=== PATIENT | female | born 1950 | race Caucasian/White ===

== ENCOUNTER 2020-05-03 18:30 | Inpatient (IN) | payer OTHER ==
[~2020-05-03] VITALS: Ht 175.3 cm; Wt 71.2 kg
--- NOTE | 2020-05-03 18:35 | NUR ---
PT BIBRA FROM HOME TO ER BED 08. PER REPORT, PT HAD A COLONOSCOPY THIS MORNING, STATES FELT WEAK AND HAD A SYNCOPAL EPISODE. ALSO C/O FACIAL PAIN. PER EMS PT WAS HYPOTENSIVE AT THE FIELD. APPROX 500ML NS GIVEN TREE AND SHRUB TECHNICIAN. PT IS AAOX4. GOWNED AND PLACED ON MONITOR. B/P SLIGHTLY IMPROVED. AWAITING MD MORA.
--- NOTE | 2020-05-03 18:39 | NUR ---
DR PISANO AT BEDSIDE FOR EVAL
[2020-05-03] MEDS ORDERED: IV NS 0.9% 1,000 ML BAG IV ONE (19:00)
[2020-05-03 19:13] LABS: BASOPHILS % (AUTO) 0.4 % (0.0-2.0); EOSINOPHILS % (AUTO) 0.4 % (0.0-6.0); HEMATOCRIT 34 % (33-45); HEMOGLOBIN 11.6 g/dL (11.5-14.8); LYMPHOCYTES # (AUTO) 1.6 /CMM (0.8-4.8); LYMPHOCYTES % (AUTO) 14.7 % (20.0-44.0); MEAN CORPUSCULAR HGB CONC 34 g/dl (31.0-36.0); MEAN CORPUSCULAR VOLUME 99 fL (82-100); MONOCYTES # (AUTO) 0.5 /CMM (0.1-1.30); MONOCYTES % (AUTO) 4.5 % (2.0-12.0); NEUTROPHILS # (AUTO) 8.5 /CMM (1.8-8.9); PLATELET COUNT (AUTO) 195 /CMM (150-450); RED BLOOD CELL COUNT(AUTO) 3.45 MIL/uL (4.0-5.2); WHITE BLOOD COUNT (AUTO) 10.6 K/uL (4.3-11.0)
--- NOTE | 2020-05-03 19:23 | NUR ---
PT BROUGHT TO CT
[2020-05-03 19:38] LABS: CALCIUM, SERUM 8.4 mg/dL (8.5-10.1); CARBON DIOXIDE 25 mmol/L (21-32); CHLORIDE 104 mmol/L (98-107); CREATININE 0.8 mg/dL (0.6-1.3); GLUCOSE 139 mg/dL (74-106); POTASSIUM 3.7 mmol/L (3.5-5.1); SODIUM SERUM 139 mmol/L (136-145); UREA NITROGEN, BLOOD 19 mg/dL (7-18)
[2020-05-03 19:42] LABS: ALANINE AMINOTRANSFERASE 50 U/L (12-78); ALBUMIN 3.3 g/dL (3.4-5.0); ALKALINE PHOSPHATASE 78 U/L (46-116); ASPARTATE AMINOTRANSFERASE 36 U/L (15-37); BILIRUBIN,DIRECT 0.1 mg/dL (0.0-0.2); BILIRUBIN,TOTAL 0.5 mg/dL (0.2-1.0); TOTAL PROTEIN, SERUM 5.7 g/dL (6.4-8.2)
--- NOTE | 2020-05-03 19:48 | NUR ---
SPOKE TO PT. PT AAOX4. STATED SHE IS "FREEZING." PT PROVIDED WITH 5 BLANEKTS. VSS. PT AWARE SHE WILL BE ADMITED FOR OBSERVATION.
--- NOTE | 2020-05-03 20:38 | NUR ---
SPOKE TO PT'S BROTHER. PROVIDED WITH PT'S BELONINGS. AWARE SHE WILL BE ADMITTED FOR SYNCOPE.
--- NOTE | 2020-05-03 20:58 | NUR ---
ORTHOSTATIC PLACED. PT PROVIDED WITH MORE BLANKETS.
--- NOTE | 2020-05-03 21:01 | NUR ---
PT STATED SHE DOES NOT TAKE ANY MEDICATIONS.
--- NOTE | 2020-05-03 21:25 | NUR ---
REPORT GIVEN TO SHRUTI ARCHIBALD FOR [facility]
--- NOTE | 2020-05-03 21:37 | NUR ---
PAGED CARE DIRECTOR GI DOCTOR
[2020-05-03 22:00] VITALS: BP_SYST 106; BP_SYST 118; BP_SYST 99; BP_DIAS 51; BP_DIAS 60; BP_DIAS 64
[2020-05-03] MEDS ORDERED: Z GUARD REMEDY 2 OZ OINT TP PRN (22:00)
[2020-05-03] MEDS ORDERED: ONDANSETRON HCL/PF 4 MG/2 ML VIAL IVP PRN (22:00)
[2020-05-03] MEDS ORDERED: MAGNESIUM HYDROXIDE 30 ML UDC PO PRN (22:00)
[2020-05-03] MEDS ORDERED: MAG HYDROX/AL HYDROX/SIMETH 30 ML UDC PO PRN (22:00)
[2020-05-03] MEDS ORDERED: ACETAMINOPHEN 325 MG TABLET PO PRN (22:00)
--- NOTE | 2020-05-03 22:00 | NUR ---
WET MILLING WHEEL OPERATOR OPENING/ADMITTING NOTE: Received patient from ER via gurney. Safely transfered to bed. Patient admitted for syncope/GI bleed. Patient is in room air. Respiration is even and unlabored. She is alert and oriented x4. On tele monitoring. She is SR 66. Upon assenssment, no perirectal bleeding is noted. Patient has a laceration on the right eyebrow, bruising bellow eyes bilaterally, swelling to nose, left leg bruising, right wrist bruising. Patient complains of pain on right wrist. Asked if she wanted pain medication. Patient refused. On clear liquid diet. IV 18 gauge on right AC. NS is running as ordered. Orthostatic BP conducted and documented. Discussed plan of care with patient. Seen by doctor Iveth. Dr. Lenny alonzo stated that echo and cardiac consult. She also mentions that right wrist does not need imaging at this time. Oriented patient to staff and call light. Safety precautions implemented. Bed in lowest position, brakes are on, call light is within reach, side rails are up, bed alarm is on. Will continue to monitor.
--- NOTE | 2020-05-03 22:02 | NUR ---
PT TRANSFERED PER ACLS PROTOCOL
[2020-05-03] MEDS: IV NS 0.9% 1,000 ML IV PRN (22:39)
[2020-05-03 23:30] VITALS: BP 118/64
[2020-05-04] VITALS (8 sets, daily range): BP systolic 52–130; BP diastolic 52–88
[2020-05-04 00:12] LABS: HEMOGLOBIN 10.8 g/dL (11.5-14.8)
--- NOTE | 2020-05-04 06:17 | NUR ---
LABOR DELIVERY SPECIALIST CLOSING NOTE: Respiration is even and unlabored. She is alert and oriented x4. On tele monitoring. She is SR 67. No perirectal bleeding is noted. Patient has a laceration on the right eyebrow, bruising bellow eyes bilaterally, swelling to nose, left leg bruising, right wrist bruising. On clear liquid diet. IV 18 gauge on right AC. NS is running as ordered. Orthostatic BP conducted and documented. Respiration is even and unlabored. Oriented patient to staff and call light. Safety precautions implemented. Bed in lowest position, brakes are on, call light is within reach, side rails are up, bed alarm is on. Will continue to monitor and endorse to next shift.
[2020-05-04 06:27] LABS: BASOPHILS % (AUTO) 0.3 % (0.0-2.0); EOSINOPHILS % (AUTO) 0.4 % (0.0-6.0); HEMATOCRIT 28 % (33-45); HEMOGLOBIN 9.5 g/dL (11.5-14.8); LYMPHOCYTES # (AUTO) 1.2 /CMM (0.8-4.8); MEAN CORPUSCULAR HGB CONC 34 g/dl (31.0-36.0); MEAN CORPUSCULAR VOLUME 98 fL (82-100); MONOCYTES # (AUTO) 0.5 /CMM (0.1-1.30); MONOCYTES % (AUTO) 6.5 % (2.0-12.0); NEUTROPHILS # (AUTO) 5.5 /CMM (1.8-8.9); NEUTROPHILS % (AUTO) 75.8 % (43.0-81.0); PLATELET COUNT (AUTO) 139 /CMM (150-450); RED BLOOD CELL COUNT(AUTO) 2.85 MIL/uL (4.0-5.2); WHITE BLOOD COUNT (AUTO) 7.3 K/uL (4.3-11.0)
[2020-05-04 06:40] LABS: CREATININE 0.5 mg/dL (0.6-1.3); PHOSPHORUS 3.4 mg/dL (2.5-4.9); POTASSIUM 3.2 mmol/L (3.5-5.1)
[2020-05-04 06:46] LABS: THYROID STIMULATING HORMONE 0.967 uIU/mL (0.358-3.74)
[2020-05-04] MEDS: IV NS 0.9% 1,000 ML IV PRN ×3 (07:00→18:39)
--- NOTE | 2020-05-04 07:08 | NUR ---
DIABETES TERRITORY MANAGER OPENING NOTES RECEIVED PT IN BED AWAKE AT THIS TIME. AOX4. PT ABLE TO MAKE NEEDS KNOWN. NO SOB NOTED, NO S/S OF ANY ACUTE DISTRESS NOTED. NO C/O PAIN AT THIS TIME. PT ON EXTERNAL TEL MONITOR READING SR 67. RESPIRATIONS EVEN AND UNLABORED. IV ACCESS IN RAC G#18 INTACT AND PATENT. SAFETY PRECAUTIONS IN PLACE, BED IN LOWEST LOCKED POSITION, BED ALARM ON, HOB ELEVATED TO SEMI FOWLERS POSITION, SIDE RAILS UP, CALL LIGHT WITHIN REACH. WILL CONTINUE TO MONITOR
--- NOTE | 2020-05-04 08:08 | NUR ---
WOUND CARE CONSULT: PT PRESENTS WITH DRY SCRATCH ABOVE RT EYE WITH BRUISING AROUND BOTH EYES AND SOME REDNESS TO NOSE, PRESENT ON ADMISSION. PT IS INDEPENDENT WITH BED MOBILITY AND CONTINENT. WILL SEE PRN. CURRENT AQUILES SCORE IS 21. Addendum: 05/04/20 at 0809 by EVE JUAREZ WNDNU Amended: Links added.
[2020-05-04] MEDS: PANTOPRAZOLE 40 MG VIAL IV SCH ×2 (08:19→21:48)
[2020-05-04] MEDS: POTASSIUM CHLORIDE 20 MEQ TAB.PRT.SR PO SCH ×3 (08:19→10:22)
[2020-05-04 09:00] LABS: IRON, SERUM 72 ug/dl (50-175); TOTAL IRON BINDING CAPACITY 225 ug/dl (250-450)
[2020-05-04 09:32] LABS: FERRITIN 46 ng/mL (8-388)
[2020-05-04 18:37] LABS: APPEARANCE,URINE SL CLOUDY (CLEAR); BILIRUBIN,URINE NEGATIVE (NEGATIVE); BLOOD, URINE TRACE-INTA Ery/uL (NEGATIVE); COLOR,URINE YELLOW (YELLOW); KETONES,URINE 15 (NEGATIVE); LEUKOCYTE ESTERASE ,URINE NEGATIVE (NEGATIVE); NITRITE, URINE NEGATIVE (NEGATIVE); PROTEIN,URINE NEGATIVE (NEGATIVE); UGLUCOSE NEGATIVE (NEGATIVE); UROBILINOGEN,URINE 0.2 EU/dL (0.2)
--- NOTE | 2020-05-04 18:57 | NUR ---
TANGLED YARN WORKER CLOSING NOTES PT IN BED AWAKE AT THIS TIME. PT REMAINED STABLE THROUGHOUT SHIFT. NO S/S OF ANY ACUTE DISTRESS NOTED. NO C/O PAIN AT THIS TIME. PT KEPT CLEAN AND DRY. ALL CARE,NEEDS, TREATMENT AND MEDICATIONS ADMINISTERED ANTICIPATED PER ORDER. SAFETY PRECAUTIONS IN PLACE, BED IN LOWEST LOCKED POSITION, BED ALARM ON, HOB ELEVATED TO SEMI FOWLERS POSITION, SIDE RAILS UP, CALL LIGHT WITHIN REACH. WILL ENDORSE TO DESIGN ENGINEER AGRICULTURAL EQUIPMENT NURSE FOR [facility].
--- NOTE | 2020-05-04 19:00 | NUR ---
OPTIMIZATION SPECIALIST NOTES RECEIVED PT IN BED AWAKE AND ABLE TO MAKE NEEDS KNOWN. PT A/O X3. RESPIRATIONS EVEN AND UNLABORED WITH NO S/S OF ACUTE DISTRESS OR SOB NOTED. NO COMPLAINTS OF PAIN AT THIS TIME. PT NOTED WITH SWELLING ON RIGHT AC AND RIGHT HAND/WRIST. SAFETY MEASURES IN PLACE WITH BED IN LOWEST LOCKED POSITION WITH SIDE RAILS UP X2. CALL LIGHT WITHIN REACH. WILL CONTINUE TO MONITOR.
--- NOTE | 2020-05-04 19:05 | NUR ---
EQUIPMENT OPERATION INSTRUCTOR NOTES PT NOTED WITH SWELLING IN RIGHT HAND AND AC. IV STOPPED. MADE AWARE.
[2020-05-04 19:08] LABS: WBC,URINE 0-2 /HPF (0-3)
[2020-05-04 19:09] LABS: BACTERIA,URINE Few /HPF (None Seen); CALCIUM OXALATE CRYSTALS,UR Rare /HPF (None Seen); SQUAMOUS EPITHELIAL CELL,UR Moderate /HPF (None Seen)
--- NOTE | 2020-05-04 19:15 | NUR ---
GLOBAL PROGRAM MANAGER NOTES MD WITH NEW ORDER FOR XRAY RIGHT WRIST, STAT. WILL CONTINUE TO MONITOR.
[2020-05-04 20:03] LABS: BASOPHILS % (AUTO) 0.5 % (0.0-2.0); EOSINOPHILS % (AUTO) 0.7 % (0.0-6.0); HEMATOCRIT 27 % (33-45); HEMOGLOBIN 9.2 g/dL (11.5-14.8); LYMPHOCYTES # (AUTO) 1.4 /CMM (0.8-4.8); LYMPHOCYTES % (AUTO) 23.7 % (20.0-44.0); MEAN CORPUSCULAR HGB CONC 34 g/dl (31.0-36.0); MEAN CORPUSCULAR VOLUME 99 fL (82-100); MONOCYTES # (AUTO) 0.4 /CMM (0.1-1.30); MONOCYTES % (AUTO) 6.8 % (2.0-12.0); NEUTROPHILS # (AUTO) 4.1 /CMM (1.8-8.9); NEUTROPHILS % (AUTO) 68.3 % (43.0-81.0); PLATELET COUNT (AUTO) 135 /CMM (150-450); RED BLOOD CELL COUNT(AUTO) 2.75 MIL/uL (4.0-5.2)
--- NOTE | 2020-05-04 20:30 | NUR ---
EXTENSION COURSE COORDINATOR NOTES RESULTS FROM XRAY OF RIGHT WRIST BACK, NOTED WITH FRACTURE. MD MADE AWARE, NEW ORDER TO CALL FOR ORTHO CONSULT IN AM. WILL CONTINUE TO MONITOR.
[2020-05-05 00:53] VITALS: BP 142/75
[2020-05-05 04:05] VITALS: BP 125/75
[2020-05-05] MEDS: IV NS 0.9% 1,000 ML IV PRN (04:29)
[2020-05-05 04:35] VITALS: BP 136/86
[2020-05-05 04:36] VITALS: BP_SYST 129; BP_SYST 133; BP_DIAS 73; BP_DIAS 74
[2020-05-05 04:49] VITALS: BP_SYST 129; BP_SYST 133; BP_SYST 136; BP_DIAS 73; BP_DIAS 74; BP_DIAS 80
[2020-05-05 06:14] LABS: BASOPHILS % (AUTO) 0.5 % (0.0-2.0); EOSINOPHILS % (AUTO) 1.4 % (0.0-6.0); HEMATOCRIT 26 % (33-45); HEMOGLOBIN 8.9 g/dL (11.5-14.8); LYMPHOCYTES # (AUTO) 1.4 /CMM (0.8-4.8); LYMPHOCYTES % (AUTO) 23.5 % (20.0-44.0); MEAN CORPUSCULAR HGB CONC 35 g/dl (31.0-36.0); MEAN CORPUSCULAR VOLUME 97 fL (82-100); MONOCYTES # (AUTO) 0.4 /CMM (0.1-1.30); MONOCYTES % (AUTO) 6.3 % (2.0-12.0); NEUTROPHILS % (AUTO) 68.3 % (43.0-81.0); PLATELET COUNT (AUTO) 126 /CMM (150-450); RED BLOOD CELL COUNT(AUTO) 2.67 MIL/uL (4.0-5.2); WHITE BLOOD COUNT (AUTO) 5.8 K/uL (4.3-11.0)
[2020-05-05 06:51] LABS: ALBUMIN 2.9 g/dL (3.4-5.0); BILIRUBIN,TOTAL 0.7 mg/dL (0.2-1.0); CALCIUM, SERUM 8.1 mg/dL (8.5-10.1); CREATININE 0.5 mg/dL (0.6-1.3); MAGNESIUM 1.7 mg/dL (1.8-2.4); PHOSPHORUS 2.9 mg/dL (2.5-4.9); POTASSIUM 3.5 mmol/L (3.5-5.1); TOTAL PROTEIN, SERUM 5.3 g/dL (6.4-8.2)
--- NOTE | 2020-05-05 07:05 | NUR ---
COMB SETTER OPENING NOTES RECEIVED PT IN BED AWAKE AT THIS TIME. AOX4. PT ABLE TO VERBALIZE NEEDS. NO SOB NOTED, NO S/S OF ANY ACUTE DISTRESS NOTED. NO C/O PAIN AT THIS TIME. PT ON EXTERNAL TEL MONITOR READING SR IN THE 70S. RESPIRATIONS EVEN AND UNLABORED. IV ACCESS IN LEFT HAND G#22, INTACT, PATENT, FLUSHING WELL AND INFUSING WITH 0.9NS@125ML/HR. SAFETY PRECAUTIONS IN PLACE, BED IN LOWEST LOCKED POSITION, BED ALARM ON, HOB ELEVATED TO SEMI FOWLERS POSITION, SIDE RAILS UP, CALL LIGHT WITHIN REACH. WILL CONTINUE TO MONITOR
--- NOTE | 2020-05-05 07:37 | NUR ---
PARTY PLANNER NOTES PT IN BED AWAKE AND ABLE TO MAKE NEEDS KNOWN. PT A/O X3. RESPIRATIONS EVEN AND UNLABORED WITH NO S/S OF ACUTE DISTRESS OR SOB NOTED THROUGHOUT SHIFT. NO COMPLAINTS OF PAIN AT THIS TIME. PT NOTED WITH SWELLING ON RIGHT AC AND RIGHT HAND/WRIST. SAFETY MEASURES IN PLACE WITH BED IN LOWEST LOCKED POSITION WITH SIDE RAILS UP X2. CALL LIGHT WITHIN REACH. WILL ENDORSE TO ONCOMING NURSE FOR REY.
[2020-05-05 08:00] VITALS: BP 125/63
[2020-05-05] MEDS: PANTOPRAZOLE 40 MG VIAL IV SCH (09:20)
--- NOTE | 2020-05-05 09:30 | NUR ---
DOCTOR MANDEEP REQUESTED TO GET A WRIST SLING FROM [facility] AT THIS TIME; [facility] DELIVERED MEDIUM WRIST SLING, ARELY PHYSICAL THERAPIST EDUCATED PATIENT ON HOW TO PLACE IT ON, ORDERS CARRIED OUT. WILL CONTINUE TO MONITOR
[2020-05-05] MEDS: Magnesium 1GM/D5W 100ML PREMIX 100 ML IV SCH ×2 (11:34→12:45)
--- NOTE | 2020-05-05 15:40 | NUR ---
RN DISCHARGED NOTES PT DISCHARGED TO HOME AT THIS TIME. .PATIENT IN STABLE CONDITION.. VITAL SIGNS WNL. ALL CARE, NEEDS, TREATMENT AND MEDICATIONS ADMINISTERED ANTICIPATED PER ORDER. DISCHARGE INSTRUCTIONS PROVIDED AND PT VERBALIZED UNDERSTANDING. PT DENIES PNEMONIA VACCINE AT THIS TIME. INSTRUCTIONS ON BENEFITS AND RISK PROVIDED AND PT VERBALIZED UNDERSTANDING. . IV ACCESS TO LEFT HAND G#20 REMOVED, PRESSURE APPLIED,SECURE WITH GAUZE AND TAPE. NO BLEEDING/INFILTRATION NOTED. PICTURES TAKEN AND FILED IN CHART. ALL BELONGINGS ACCOUNTED FOR, SIGNED AND FILED IN CHART. PT TRANSPORTED TO [facility] ON A WHEEL CHAIR BY CRISTELA BRAY . PT IS PICKED UP BY BROTHER MOLLY SOSA IN PRIVATE CAR
== END 2020-05-05 15:59 | disposition home or self-care (01) | DRG 312 ==
LOC: ER 18:37 → TELE 21:06 → MED 05-05 12:11
PROVIDERS: ADMIT Registered Nurse; ATTEND Internal Medicine
DX: I95.1 Orthostatic hypotension (principal); S52.501A Unspecified fracture of the lower end of right radius, initial encounter for closed fracture; K62.5 Hemorrhage of anus and rectum; N17.9 Acute kidney failure, unspecified; E86.0 Dehydration; K63.5 Polyp of colon; S02.2XXA Fracture of nasal bones, initial encounter for closed fracture; W18.30XA Fall on same level, unspecified, initial encounter; Z88.5 Allergy status to narcotic agent; Y92.9 Unspecified place or not applicable; E87.6 Hypokalemia; E83.42 Hypomagnesemia; D64.9 Anemia, unspecified; Z90.710 Acquired absence of both cervix and uterus
CPT/HCPCS: 36415; 70450-TC; 71045-TC; 73110; 80048-TC; 80053-TC; 80061-TC; 80076-TC; 81000-TC; 82728-TC; 83540-TC; 83735-TC; 84100-TC; 84439-TC; 84443-TC; 84484-TC; 85025-TC; 85027-TC; 85730-TC; 87081-TC; 93307-TC; 97116-TC; 97530-TC; C9113; G0378; J3475; J7030